=== PATIENT | female | born 1995 | race Caucasian/White ===

== ENCOUNTER 2018-05-25 02:38 | Emergency (ER) | payer BC ==
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
[2018-05-25 06:15] LABS: ABS Basophils 0 10^3/ul (0-0.2); ABS Eosinophils 0.1 10^3/ul (0-0.6); ABS Lymphocytes 2.2 10^3/ul (1.0-4.8); ABS Monocytes 0.8 10^3/ul (0-0.8); ABS Neutrophils 5.8 10^3/ul (1.5-7.7); ABS Nucleated RBC 0 10^3/ul; Eosinophil % 0.9 % (0-6); Hematocrit 42 % (35-47); Hemoglobin 14.8 g/dl (12.0-16.0); Lymphocyte % 24.5 % (25-47); Mean Corpuscular HGB Conc 35 g/dl (31-36); Mean Corpuscular Hemoglobin 33 pg (27-31); Mean Corpuscular Volume 94 fL (80-97); Mean Platelet Volume 9.3 um3 (7.4-10.4); Nucleated Red Blood Cells % 0.3; Platelet Count 221 10^3/ul (150-450); Red Cell Distribution Width 12 % (10.5-15); White Blood Count 8.9 10^3/ul (3.5-10.8)
[2018-05-25 06:29] LABS: Urine Appearance Cloudy; Urine Blood Negative (Negative); Urine Color Yellow; Urine Ketones Trace (Negative); Urine Protein Negative (Negative); Urine Specific Gravity 1.016 (1.010-1.030); Urine Urobilinogen Negative (Negative)
[2018-05-25 06:32] LABS: EGFR Non-African American 123.8 (>60)
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
[2018-05-25] MEDS ORDERED: LORazepam TAB(*) 1 MG PO ONE (07:55)
[2018-05-25] MEDS ORDERED: Divalproex DR TAB(*) 125 MG PO ONE (08:03)
[2018-05-25 11:27] VITALS: BP 133/87
== END 2018-05-25 11:26 | disposition home or self-care (01) ==
LOC: ED 02:38
DX: F19.10 Other psychoactive substance abuse, uncomplicated (principal); S60.512A Abrasion of left hand, initial encounter; W50.0XXA Accidental hit or strike by another person, initial encounter; Y92.9 Unspecified place or not applicable
CPT/HCPCS: 36415; 80053; 80307; 80320; 80329; 81003; 84443; 84702; 85025; 93005; 99285; A9270-GY; G0480